=== PATIENT | female | born 1975 | race Caucasian/White ===

== ENCOUNTER 2021-04-11 07:49 | Emergency (ER) | payer MEDICAID ==
[~2021-04-11] VITALS: Ht 180.3 cm; Wt 113.4 kg
[2021-04-11] MEDS ORDERED: EPINEPHrine HCL 1 MG/10 ML SYRG IV ONE (07:50)
[2021-04-11] MEDS ORDERED: SODIUM BICARBONATE 8.4% INJ 50ML SYRINGE IV ONE (07:50)
[2021-04-11] MEDS ORDERED: DEXTROSE (50%) 50ML SYRG IV ONE (07:50)
[2021-04-11] MEDS ORDERED: DOPamine 1600mCg/ml 400MG/250ml NSorD5 KIT/BAG IV ONE (07:50)
== END 2021-04-11 08:08 ==
LOC: EDBD 07:49 → ER 07:49
DX: I46.9 Cardiac arrest, cause unspecified (principal); J96.01 Acute respiratory failure with hypoxia
CPT/HCPCS: 92950; 99285; J0171; J1265; J7042